=== PATIENT | male | born 1950 | race Caucasian/White ===

== ENCOUNTER → 2020-03-05 | Outpatient (CLI) | payer MEDICARE | END | disposition home or self-care (01) | LOC: CVU 07:59 | PROVIDERS: ATTEND Internal Medicine Cardiovascular Disease | DX: I08.8 Other rheumatic multiple valve diseases (principal); I48.91 Unspecified atrial fibrillation; I11.9 Hypertensive heart disease without heart failure | CPT/HCPCS: 93306 ==

== ENCOUNTER 2020-05-12 06:06 | Observation (INO) | payer MEDICARE ==
[~2020-05-12] VITALS: Ht 182.9 cm; Wt 86.7 kg
[2020-05-12] MEDS ORDERED: SODIUM CHLORIDE 0.9% 1,000 ML IV SCH (06:44)
[2020-05-12 06:49] VITALS: BP 106/80
[2020-05-12] MEDS ORDERED: LIDOCAINE 1%, 20ML ONE (06:49)
[2020-05-12] MEDS ORDERED: APIX5TAB PO (07:00)
[2020-05-12] MEDS ORDERED: METO25TA91 PO (07:02)
[2020-05-12] MEDS ORDERED: LISI-167 PO (07:02)
[2020-05-12] MEDS ORDERED: ROSU10TA2 PO (07:02)
[2020-05-12] MEDS ORDERED: PROPOFOL 50 ML ONE (07:44)
[2020-05-12] MEDS ORDERED: MIDAZOLAM 1 MG/ML, 2ML ONE (07:45)
[2020-05-12] MEDS ORDERED: FENTANYL PF 250 MCG/5ML ONE ×2 (07:45→09:16)
[2020-05-12] MEDS ORDERED: DEXAMETHASONE 4 MG/ML, 1ML ONE (08:15)
[2020-05-12 08:33] LABS: BASOPHILS # (AUTO) 0.04 x10^3/uL (0-0.1); BASOPHILS % (AUTO) 1 % (0-1); EOSINOPHILS # (AUTO) 0.48 x10^3/uL (0-0.4); EOSINOPHILS % (AUTO) 7 % (1-7); LYMPHOCYTES # (AUTO) 1.41 x10^3/uL (1-3.4); LYMPHOCYTES % (AUTO) 21 % (22-44); MD NO; MEAN CORPUSCULAR HEMOGLOBIN 32.2 pg (27.5-34.5); MEAN CORPUSCULAR HGB CONC 32.4 g/dL (33.2-36.2); MEAN CORPUSCULAR VOLUME 99.2 fL (81-97); MEAN PLATELET VOLUME 7.7 fL (7.4-10.4); MONOCYTES % (AUTO) 12 % (2-9); NEUTROPHILS % (AUTO) 60 % (42-75); PLATELET COUNT 271 x10^3/uL (130-400); RED CELL DISTRIBUTION WIDTH 14.6 % (9.4-14.8)
[2020-05-12 08:41] LABS: ANION GAP 6 mmol/L (5-15); CALCIUM 9.1 mg/dL (8.5-10.1); CHLORIDE 108 mmol/L (98-107); CREATININE 1.21 mg/dL (0.7-1.3)
[2020-05-12] MEDS ORDERED: SUCCINYLCHOLINE 20 MG/ML, 10ML ONE (09:14)
[2020-05-12] MEDS ORDERED: HEPARIN 1,000 UNITS/ML, 10ML ONE ×2 (09:14)
[2020-05-12] MEDS ORDERED: APIXABAN 5 MG TABLET PO SCH (11:00)
[2020-05-12] MEDS ORDERED: EPHEDRINE 50 MG/ML, 1ML ONE (11:22)
[2020-05-12] MEDS: EPHEDRINE 50 MG/ML, 1ML IVPush PRN ×2 (11:25→11:55)
[2020-05-12] MEDS ORDERED: APIXABAN 5 MG TABLET ONE (11:31)
[2020-05-12] MEDS: APIXABAN 5 MG TABLET PO SCH ×2 (11:45→22:23)
[2020-05-12] MEDS ORDERED: ACETAMINOPHEN 650 MG/20.3 ML UDC ONE (11:52)
[2020-05-12] MEDS ORDERED: ACETAMINOPHEN 325 MG TABLET ONE (11:52)
[2020-05-12] MEDS ORDERED: DIAZEPAM 5 MG/ML, 2ML IVPush PRN (12:00)
[2020-05-12] MEDS ORDERED: MEPERIDINE/PF 25MG/0.5ML IVPush PRN (12:00)
[2020-05-12] MEDS ORDERED: ACETAMINOPHEN 325 MG TABLET PO PRN (12:00)
[2020-05-12] MEDS ORDERED: morphine SULFATE 10 MG/ML, 1ML IVPush PRN (12:00)
[2020-05-12] MEDS ORDERED: FENTANYL PF 100 MCG/2ML IV PRN (12:00)
[2020-05-12] MEDS ORDERED: OXYcodone 5 MG/5 ML ORAL.SOL UDC PO PRN (12:00)
[2020-05-12] MEDS ORDERED: ONDANSETRON 2MG/ML, 2ML IVPush PRN (12:00)
[2020-05-12] MEDS ORDERED: DIPHENHYDRAMINE 50 MG/ML, 1ML IVPush PRN (12:00)
[2020-05-12] MEDS ORDERED: EPHEDRINE 50 MG/ML, 1ML IM PRN (12:00)
[2020-05-12] MEDS ORDERED: PROMETHAZINE 25 MG/ML, 1ML IVPush PRN (12:00)
[2020-05-12 13:29] VITALS: BP 106/71
[2020-05-12 19:56] VITALS: BP 127/85
[2020-05-12] MEDS ORDERED: ATORVASTATIN 40 MG TABLET PO SCH (21:00)
[2020-05-12] MEDS: METOPROLOL SUCCINATE 25 MG TAB.ER.24H PO SCH (22:23)
[2020-05-12] MEDS: COLCHICINE 0.6 MG CAPSULE PO SCH (22:23)
[2020-05-12] MEDS ORDERED: OXYcodone/APAP 5/325MG TABLET PO PRN (23:00)
[2020-05-13 00:40] VITALS: BP 134/85
[2020-05-13 07:30] VITALS: BP 123/85
[2020-05-13] MEDS: METOPROLOL SUCCINATE 25 MG TAB.ER.24H PO SCH (08:04)
[2020-05-13] MEDS: COLCHICINE 0.6 MG CAPSULE PO SCH (08:05)
[2020-05-13] MEDS: APIXABAN 5 MG TABLET PO SCH (08:05)
[2020-05-13] MEDS ORDERED: COLC0.6C3 PO (08:23)
[2020-05-13] MEDS ORDERED: ACET325T26 PO (08:23)
[2020-05-13] MEDS ORDERED: LISINOPRIL 10 MG TABLET PO SCH (09:00)
== END 2020-05-13 09:44 | disposition home or self-care (01) ==
LOC: CACL 06:06 → ORIP 10:45 → 5SO 12:21 → DCLOUNGE 05-13 09:39
PROVIDERS: ADMIT Internal Medicine Cardiovascular Disease; ATTEND Internal Medicine Cardiovascular Disease
DX: I48.91 Unspecified atrial fibrillation (principal); Z20.828 Contact with and (suspected) exposure to other viral communicable diseases; I48.92 Unspecified atrial flutter; I10 Essential (primary) hypertension; F10.10 Alcohol abuse, uncomplicated; R06.02 Shortness of breath; R42 Dizziness and giddiness; Z79.899 Other long term (current) drug therapy
CPT/HCPCS: 36415; 71046; 80048; 85025; 85347; 87635; 93306; 93613; 93655; 93656; 93657; 93662; C1730; C1732; C1759; C1766; C1893; C1894; G0378; J0330; J1100; J1644; J2250; J2704; J3010; J3490